=== PATIENT | female | born 1980 | race Caucasian/White ===

== ENCOUNTER 2019-08-22 15:10 | Emergency (ER) | payer BC, OTHER ==
[2019-08-22] MEDS ORDERED: Sodium Chloride 0.9% 10 ML Syringe FLUSH PRN (15:12)
--- NOTE | 2019-08-22 15:34 | CT ---
EXAMINATION: Head wo Cont SEX: Female AGE: 39 years CLINICAL HISTORY: 39-year-old female LIGHTHEADED AND DIZZY at work; dilated sluggish pupils and "not tracking appropriately". No known trauma. Scan technique: Volume acquisition of data emergency unenhanced CT scan of the head and brain obtained with the patient lying supine on the Siemens multislice scanner [place], [place]. All data archived in the PACS system for storage, reformatting axial/sagittal/coronal planes and study (bone/soft tissue windows). No comparison exams immediately available at this institution. INTERPRETATION: Negative exam. 1. Hyperostosis frontalis interna but otherwise uniformly thick bony calvarium. Symmetric clear paranasal and mastoid sinuses. No mucoperiosteal inflammation or pathologic air-fluid levels. Nasal septum midline. 2. No pathologic skeletal lesion, skull fracture, underlying brain contusion or abnormal extracerebral/intracranial epidural or subdural hematoma. 3. No supratentorial or posterior fossa mass lesion. 4. No hydrocephalus. 5. No ischemic infarcts or signs of encephalomalacia. 6. No evidence of acute intracerebral, intraventricular or subarachnoid bleed. 7. Cerebellum and brainstem unremarkable. Basal skull and TMJs normal.
--- NOTE | 2019-08-22 15:43 | EDM.PDOC ---
ED HPI GENERAL MEDICAL PROBLEM - General Chief Complaint: Neurological Problem Stated Complaint: EYE ISSUE Time Seen by Provider: 08/22/19 15:30 Source of Information: Reports: Patient, Provider (Dr. Martin), RN, RN Notes Reviewed History Limitations: Reports: No Limitations - History of Present Illness INITIAL COMMENTS - FREE TEXT/NARRATIVE: Patient presents to ER from [facility] with complaint of feeling funny. Patient states she was at work became dizzy and a little lightheaded, states she felt as though her right eye was shaking or twitching and that a cover was coming over her right eye. Patient states her pupils were dilated at that time and somewhat sluggish. Patient states her heart rate at that time was approximately 102, states she generally has a low heart rate. Patient states these began about 130. She had had lunch prior to that as well as exercised. Patient denies any health problems, denies taking any medications. Patient denies any alcohol or drug use. Patient denies history of headaches or migraine headaches. Denies weakness. NIH score equals 0. Onset: Today, Sudden - Related Data Allergies Allergy/AdvReac Type Severity Reaction Status Date / Time bee venom protein (honey bee) Allergy Hives Verified 08/22/19 15:22 shellfish derived Allergy Hives Verified 08/22/19 15:22 Home Meds: Home Meds . [No Known Home Meds] 08/22/19 [History] ED ROS GENERAL - Review of Systems Review Of Systems: Comprehensive ROS is negative, except as noted in HPI. ED EXAM, NEURO - Physical Exam Exam: See Below Exam Limited By: No Limitations General Appearance: Alert, WD/WN, No Apparent Distress, Anxious Eye Exam: Bilateral Eye: EOMI, Normal Inspection, PERRL (5, brisk) Ears: Normal External Exam, Hearing Grossly Normal Nose: Normal Inspection Throat/Mouth: Normal Inspection, Normal Voice, No Airway Compromise Head Exam: Atraumatic, Normocephalic Neck: Normal Inspection, Supple, Full Range of Motion, Tender Lateral (left) Respiratory/Chest: No Respiratory Distress, Lungs Clear, Normal Breath Sounds, No Accessory Muscle Use, Chest Non-Tender Cardiovascular: Normal Peripheral Pulses, Regular Rate, Rhythm, No Edema, No Gallop, No JVD, No Murmur, No Rub GI/Abdominal: Normal Bowel Sounds, Soft, Non-Tender, No Organomegaly, No Distention, No Abnormal Bruit, No Mass (Female) Exam: Deferred Rectal (Female) Exam: Deferred Neurological: Alert, Normal Mood/Affect, Normal Dorsiflexion, CN II-XII Intact, Normal Plantar Flexion, Normal Gait, Normal Reflexes, No Motor/Sensory Deficits, Oriented x 3 Back Exam: Normal Inspection, Full Range of Motion, NT Extremities: Normal Inspection, Normal Range of Motion, Non-Tender, No Pedal Edema, Normal Capillary Refill Psychiatric: Normal Mood, Anxious, Flat Affect Skin Exam: Warm, Dry, Intact, Normal Color, No Rash Course - Vital Signs Last Recorded V/S: Last Vital Signs Temp 97.2 F 08/22/19 15:23 Pulse 84 08/22/19 15:23 Resp 18 08/22/19 15:23 BP 132/87 08/22/19 15:23 Pulse Ox 100 08/22/19 15:23 - Orders/Labs/Meds Orders: Active Orders 24 hr Category Date Time Status EKG Documentation Completion [RC] STAT Care 08/22/19 15:12 Active Peripheral IV Care [RC] . DIRECTED Care 08/22/19 15:14 Active Sodium Chloride 0.9% [Normal Saline] 1,000 ml Med 08/22/19 15:45 Active IV ASDIRECTED Sodium Chloride 0.9% [Saline Flush] Med 08/22/19 15:12 Active 10 ml FLUSH ASDIRECTED PRN Peripheral IV Insertion Adult [OM.PC] Stat Oth 08/22/19 15:12 Ordered Medication Orders Sodium Chloride (Normal Saline) 1,000 mls @ 999 mls/hr IV ASDIRECTED TIANNA Last Infusion: 08/22/19 16:41 Dose: 999 mls/hr Documented by: Admin: 08/22/19 15:36 Dose: 999 mls/hr Documented by: ITALIA Sodium Chloride (Saline Flush) 10 ml FLUSH ASDIRECTED PRN PRN Reason: Keep Vein Open Last Admin: 08/22/19 15:36 Dose: 10 ml Documented by: ITALIA Labs: Laboratory Tests 08/22/19 08/22/19 08/22/19 Range/Units 15:17 15:33 15:33 WBC 9.1 (5.0-10.0) 10^3/uL RBC 4.61 (4.2-5.4) 10^6/uL Hgb 13.2 (12.0-16.0) g/dL Hct 41.1 (37.0-47.0) % MCV 89.2 (80-100) fL MCH 28.6 (27.0-34.0) pg MCHC 32.1 L (33.0-35.0) g/dL Plt Count 236 (150-450) 10^3/uL Neut % (Auto) 72.4 (42.2-75.2) % Lymph % (Auto) 17.7 L (20.5-50.1) % [place] % (Auto) 9.4 H (2-8) % Eos % (Auto) 0.4 L (1.0-3.0) % Baso % (Auto) 0.1 (0.0-1.0) % PT (9.0-12.0) SEC INR (0.9-1.2) Sodium 141 (136-145) mmol/L Potassium 3.8 (3.5-5.1) mmol/L Chloride 104 (98-107) mmol/L Carbon Dioxide 27 (21-32) mmol/L Anion Gap 13.8 H (7-13) mEq/L BUN 23 H (7-18) mg/dL Creatinine 1.10 H (0.55-1.02) mg/dL Est Cr Clr Drug Dosing 69.95 mL/min Estimated GFR (MDRD) 56 BUN/Creatinine Ratio 20.9 (No establ ref range) Glucose 95 (74-99) mg/dL POC Glucose 96 (70-105) mg/dl Calcium 8.9 (8.5-10.1) mg/dL Total Bilirubin 0.6 (0.2-1.0) mg/dL AST 21 (15-37) U/L ALT 32 (14-59) U/L Alkaline Phosphatase 76 (46-116) U/L Total Protein 7.2 (6.4-8.2) g/dL Albumin 4.2 (3.4-5.0) g/dL Globulin 3.0 Albumin/Globulin Ratio 1.4 Urine Color (YELLOW) Urine Appearance (CLEAR) Urine pH (5.0-9.0) Ur Specific [place] (1.005-1.030) Urine Protein (NEGATIVE) Urine Glucose (UA) (NEGATIVE) Urine Ketones (NEGATIVE) Urine Occult Blood (NEGATIVE) Urine Nitrite (NEGATIVE) Urine Bilirubin (NEGATIVE) Urine Urobilinogen (0.2-1.0) mg/dL Ur Leukocyte Esterase (NEGATIVE) Urine HCG, Qual Urine Opiates Screen (NEGATIVE) Ur Oxycodone Screen (NEGATIVE) Urine Methadone Screen (NEGATIVE) Ur Barbiturates Screen (NEGATIVE) U Tricyclic Antidepress (NEGATIVE) Ur Phencyclidine Scrn (NEGATIVE) Ur Amphetamine Screen (NEGATIVE) U Methamphetamines Scrn (NEGATIVE) Urine MDMA Screen (NEGATIVE) U Benzodiazepines Scrn (NEGATIVE) Urine Cocaine Screen (NEGATIVE) U Marijuana (THC) Screen (NEGATIVE) Ethyl Alcohol (0) mg/dL 08/22/19 08/22/19 08/22/19 Range/Units 15:33 15:33 16:32 WBC (5.0-10.0) 10^3/uL RBC (4.2-5.4) 10^6/uL Hgb (12.0-16.0) g/dL Hct (37.0-47.0) % MCV (80-100) fL MCH (27.0-34.0) pg MCHC (33.0-35.0) g/dL Plt Count (150-450) 10^3/uL Neut % (Auto) (42.2-75.2) % Lymph % (Auto) (20.5-50.1) % [place] % (Auto) (2-8) % Eos % (Auto) (1.0-3.0) % Baso % (Auto) (0.0-1.0) % PT 10.4 (9.0-12.0) SEC INR 1.1 (0.9-1.2) Sodium (136-145) mmol/L Potassium (3.5-5.1) mmol/L Chloride (98-107) mmol/L Carbon Dioxide (21-32) mmol/L Anion Gap (7-13) mEq/L BUN (7-18) mg/dL Creatinine (0.55-1.02) mg/dL Est Cr Clr Drug Dosing mL/min Estimated GFR (MDRD) BUN/Creatinine Ratio (No establ ref range) Glucose (74-99) mg/dL POC Glucose (70-105) mg/dl Calcium (8.5-10.1) mg/dL Total Bilirubin (0.2-1.0) mg/dL AST (15-37) U/L ALT (14-59) U/L Alkaline Phosphatase (46-116) U/L Total Protein (6.4-8.2) g/dL Albumin (3.4-5.0) g/dL Globulin Albumin/Globulin Ratio Urine Color Yellow (YELLOW) Urine Appearance Clear (CLEAR) Urine pH 6.0 (5.0-9.0) Ur Specific [place] 1.010 (1.005-1.030) Urine Protein Negative (NEGATIVE) Urine Glucose (UA) Negative (NEGATIVE) Urine Ketones Negative (NEGATIVE) Urine Occult Blood Negative (NEGATIVE) Urine Nitrite Negative (NEGATIVE) Urine Bilirubin Negative (NEGATIVE) Urine Urobilinogen 0.2 (0.2-1.0) mg/dL Ur Leukocyte Esterase Negative (NEGATIVE) Urine HCG, Qual Urine Opiates Screen (NEGATIVE) Ur Oxycodone Screen (NEGATIVE) Urine Methadone Screen (NEGATIVE) Ur Barbiturates Screen (NEGATIVE) U Tricyclic Antidepress (NEGATIVE) Ur Phencyclidine Scrn (NEGATIVE) Ur Amphetamine Screen (NEGATIVE) U Methamphetamines Scrn (NEGATIVE) Urine MDMA Screen (NEGATIVE) U Benzodiazepines Scrn (NEGATIVE) Urine Cocaine Screen (NEGATIVE) U Marijuana (THC) Screen (NEGATIVE) Ethyl Alcohol < 3 (0) mg/dL 08/22/19 08/22/19 Range/Units 16:32 16:32 WBC (5.0-10.0) 10^3/uL RBC (4.2-5.4) 10^6/uL Hgb (12.0-16.0) g/dL Hct (37.0-47.0) % MCV (80-100) fL MCH (27.0-34.0) pg MCHC (33.0-35.0) g/dL Plt Count (150-450) 10^3/uL Neut % (Auto) (42.2-75.2) % Lymph % (Auto) (20.5-50.1) % [place] % (Auto) (2-8) % Eos % (Auto) (1.0-3.0) % Baso % (Auto) (0.0-1.0) % PT (9.0-12.0) SEC INR (0.9-1.2) Sodium (136-145) mmol/L Potassium (3.5-5.1) mmol/L Chloride (98-107) mmol/L Carbon Dioxide (21-32) mmol/L Anion Gap (7-13) mEq/L BUN (7-18) mg/dL Creatinine (0.55-1.02) mg/dL Est Cr Clr Drug Dosing mL/min Estimated GFR (MDRD) BUN/Creatinine Ratio (No establ ref range) Glucose (74-99) mg/dL POC Glucose (70-105) mg/dl Calcium (8.5-10.1) mg/dL Total Bilirubin (0.2-1.0) mg/dL AST (15-37) U/L ALT (14-59) U/L Alkaline Phosphatase (46-116) U/L Total Protein (6.4-8.2) g/dL Albumin (3.4-5.0) g/dL Globulin Albumin/Globulin Ratio Urine Color (YELLOW) Urine Appearance (CLEAR) Urine pH (5.0-9.0) Ur Specific [place] (1.005-1.030) Urine Protein (NEGATIVE) Urine Glucose (UA) (NEGATIVE) Urine Ketones (NEGATIVE) Urine Occult Blood (NEGATIVE) Urine Nitrite (NEGATIVE) Urine Bilirubin (NEGATIVE) Urine Urobilinogen (0.2-1.0) mg/dL Ur Leukocyte Esterase (NEGATIVE) Urine HCG, Qual Negative Urine Opiates Screen Negative (NEGATIVE) Ur Oxycodone Screen Negative (NEGATIVE) Urine Methadone Screen Negative (NEGATIVE) Ur Barbiturates Screen Negative (NEGATIVE) U Tricyclic Antidepress Negative (NEGATIVE) Ur Phencyclidine Scrn Negative (NEGATIVE) Ur Amphetamine Screen Negative (NEGATIVE) U Methamphetamines Scrn Negative (NEGATIVE) Urine MDMA Screen Negative (NEGATIVE) U Benzodiazepines Scrn Negative (NEGATIVE) Urine Cocaine Screen Negative (NEGATIVE) U Marijuana (THC) Screen Negative (NEGATIVE) Ethyl Alcohol (0) mg/dL Meds: Medications Generic Name Dose Route Start Last Admin Trade Name Freq PRN Reason Stop Dose Admin Sodium Chloride 1,000 mls @ 999 mls/hr 08/22/19 15:45 08/22/19 16:41 Normal Saline IV Infused ASDIRECTED TIANNA Infusion Sodium Chloride 10 ml 08/22/19 15:12 08/22/19 15:36 Saline Flush FLUSH 10 ml ASDIRECTED PRN Administration Keep Vein Open Discontinued Medications Generic Name Dose Route Start Last Admin Trade Name Zehra PRN Reason Stop Dose Admin Diphenhydramine HCl 25 mg 08/22/19 15:56 08/22/19 16:25 Benadryl IVPUSH 08/22/19 15:57 25 mg ONETIME ONE Administration - Radiology Interpretation Free Text/Narrative:: Head CT wo contrast: Negative exam See rad report - Re-Assessments/Exams Free Text/Narrative Re-Assessment/Exam: 08/22/19 16:58 Patient states she is feeling somewhat better, but states she feels as though it is she was having an out of body experience. Patient has flat affect, and is in a dazed status. States she feels tired but would like to go home and rest. Patient informed of all labs and diagnostics done today in the ER, patient encouraged to go home and rest but to return to the ER with any worsening of symptoms or onset of new symptoms. Departure - Departure Time of Disposition: 16:59 Disposition: Home, Self-Care 01 Condition: Fair Clinical Impression: Light-headed feeling, Migraine aura without headache - Discharge Information *PRESCRIPTION DRUG MONITORING PROGRAM REVIEWED*: No *COPY OF PRESCRIPTION DRUG MONITORING REPORT IN PATIENT ELIDIA: No Instructions: Migraine Headache, [id number], Dizziness, [id number], Dehydration, Adult, [id number] Forms: ED Department Discharge Additional Instructions: Go home and rest Return to the ER with any worsening of symptoms or onset of new symptoms If you develop a headache may use Tylenol and/or ibuprofen as directed for pain Drink plenty of fluids Follow-up with your primary care provider next week Sepsis Event Note (ED) - Evaluation Sepsis Screening Result: No Definite Risk - Focused Exam Vital Signs: Vital Signs Temp Pulse Resp BP Pulse Ox 08/22/19 15:23 97.2 F 84 18 132/87 100 - My Orders Last 24 Hours: My Active Orders 08/22/19 15:12 EKG Documentation Completion [RC] STAT Sodium Chloride 0.9% [Saline Flush] 10 ml FLUSH ASDIRECTED PRN Peripheral IV Insertion Adult [OM.PC] Stat 08/22/19 15:14 Peripheral IV Care [RC] . DIRECTED 08/22/19 15:45 Sodium Chloride 0.9% [Normal Saline] 1,000 ml IV ASDIRECTED - Assessment/Plan Last 24 Hours: My Active Orders 08/22/19 15:12 EKG Documentation Completion [RC] STAT Sodium Chloride 0.9% [Saline Flush] 10 ml FLUSH ASDIRECTED PRN Peripheral IV Insertion Adult [OM.PC] Stat 08/22/19 15:14 Peripheral IV Care [RC] . DIRECTED 08/22/19 15:45 Sodium Chloride 0.9% [Normal Saline] 1,000 ml IV ASDIRECTED
[2019-08-22] MEDS ORDERED: Sodium Chloride 0.9% 1,000 ML IV SCH (15:45)
[2019-08-22] MEDS ORDERED: diphenhydrAMINE 50 MG/ML SDV IVPUSH ONE (15:56)
[2019-08-22 16:17] LABS: ANION GAP 13.8 mEq/L (7-13)
== END 2019-08-22 17:06 | disposition home or self-care (01) ==
LOC: DL.ED 15:10
DX: G43.109 Migraine with aura, not intractable, without status migrainosus (principal); R42 Dizziness and giddiness; Z91.013 Allergy to seafood; Z91.030 Bee allergy status
CPT/HCPCS: 36415; 70450; 80053; 80305; 80307; 81003; 81025; 82962; 85025; 85610; 93005; 96361; 96374; 99284; J1200; J7030; 99283

== ENCOUNTER 2020-01-20 13:01 | Emergency (ER) | payer OTHER ==
[2020-01-20] MEDS ORDERED: Ketorolac 30 MG/ML SDV IM ONE (13:33)
--- NOTE | 2020-01-20 13:53 | CR ---
PROCEDURE INFORMATION: Exam: XR Left Foot Complete Exam date and time: 01/20/2020 1:15 PM Age: 39 years old Clinical indication: Pain; Foot; Left; Additional info: Left foot injury, pain TECHNIQUE: Imaging protocol: XR Left foot. Views: 3 or more views. COMPARISON: No relevant prior studies available. FINDINGS: Bones/joints: Normal mineralization and alignment. No fracture, degenerative spur, osseous erosion or other deformity. Soft tissues: Normal. IMPRESSION: Normal.
--- NOTE | 2020-01-20 13:56 | EDM.PDOC ---
<ShirebaSatishian - Last Filed: 01/20/20 14:10> ED HPI GENERAL MEDICAL PROBLEM - General Chief Complaint: Lower Extremity Injury/Pain Stated Complaint: BROKEN LEFT FOOT Time Seen by Provider: 01/20/20 13:30 - Related Data Allergies Allergy/AdvReac Type Severity Reaction Status Date / Time bee venom protein (honey bee) Allergy Hives Verified 08/22/19 15:22 shellfish derived Allergy Hives Verified 08/22/19 15:22 Home Meds: Home Meds . [No Known Home Meds] 08/22/19 [History] Course - Re-Assessments/Exams Free Text/Narrative Re-Assessment/Exam: 01/20/20 14:10 I personally performed or re-performed the physical examination and medical decision making. I have verified all student documentation or findings, including history, physical exam and/or medical decision making. Departure - Departure Disposition: Home, Self-Care 01 Clinical Impression: Hematoma of left foot - Discharge Information Instructions: Periosteal Hematoma Forms: ED Department Discharge Additional Instructions: Continue to wear walking boot for 7-10 days. Follow-up in clinic if the pain has not resolved by that time. May use OTC ibuprofen as directed. Continue to use ice to the foot. Rest, Ice, Compression (as tolerated), Elevate. <Chela Mireles - Last Filed: 01/20/20 14:19> ED HPI GENERAL MEDICAL PROBLEM - General Source of Information: Reports: Patient, RN, RN Notes Reviewed History Limitations: Reports: No Limitations - History of Present Illness INITIAL COMMENTS - FREE TEXT/NARRATIVE: pt to ER with c/o left foot pain. states she initially injured her foot on Wednesday, went to chiropractor and was feeling better. states she was working out today and jumped on box, felt and heard left foot snap. reports pain initially a 9/10 which made her feel nauseous, dizzy, and lightheaded. rates pain 2/10 @ rest. reports feeling of numbness, tingling, and cool sensation up left calf into posterior knee fossa. denies additional injury. does have feeling to her foot. Onset: Today Left Feet Pain Score (Numeric/FACES): 5 Past Medical History - Past Health History Medical/Surgical History: Denies Medical/Surgical History [employer]GRAM[employer] History: Reports: - Past Surgical History Female Surgical History: Reports: Section Social & Family History - Tobacco Use Tobacco Use Status *Q: Never Tobacco User - Caffeine Use Caffeine Use: Reports: None - Recreational Drug Use Recreational Drug Use: No Review of Systems - Review of Systems Review Of Systems: Comprehensive ROS is negative, except as noted in HPI. ED EXAM, GENERAL - Physical Exam Exam: See Below Exam Limited By: No Limitations General Appearance: Alert, WD/WN, Mild Distress Eye Exam: Bilateral Eye: EOMI, Normal Inspection Nose: Normal Inspection Throat/Mouth: Normal Inspection Head: Atraumatic, Normocephalic Neck: Normal Inspection, Supple, Non-Tender, Full Range of Motion Respiratory/Chest: No Respiratory Distress, Lungs Clear, Normal Breath Sounds Cardiovascular: Normal Peripheral Pulses, Regular Rate, Rhythm, No Edema Peripheral Pulses: 3+: Posterior Tibial (L), Posterior Tibial (R), Dorsalis Pedis (L), Dorsalis Pedis (R) GI/Abdominal: Normal Bowel Sounds, Soft, Non-Tender, No Distention (Female) Exam: Deferred Rectal (Female) Exam: Deferred Back Exam: Normal Inspection, Full Range of Motion Extremities: Normal Inspection, Limited Range of Motion (left ankle), Other (tender to top dorsal lateral aspect of left foot with noted hematoma to same area. ) Neurological: Alert, Oriented, Normal Cognition, No Motor/Sensory Deficits Psychiatric: Anxious, Tearful Skin Exam: Warm, Dry, Intact, Cool Lymphatic: No Adenopathy Course - Vital Signs Last Recorded V/S: Last Vital Signs Temp 98.1 F 01/20/20 13:17 Pulse 70 01/20/20 13:17 Resp 18 01/20/20 13:17 BP 137/64 01/20/20 13:17 Pulse Ox 99 01/20/20 13:17 - Orders/Labs/Meds Orders: Active Orders 24 hr Category Date Time Status DME for Discharge [COMM] Stat Oth 01/20/20 13:34 Ordered Meds: Medications Discontinued Medications Generic Name Dose Route Start Last Admin Trade Name Freq PRN Reason Stop Dose Admin Ketorolac Tromethamine 60 mg 01/20/20 13:33 01/20/20 13:42 Toradol IM 01/20/20 13:34 60 mg ONETIME ONE Administration - Radiology Interpretation Free Text/Narrative:: PROCEDURE INFORMATION: Exam: XR Left Foot Complete Exam date and time: 01/20/2020 1:15 PM Age: 39 years old Clinical indication: Pain; Foot; Left; Additional info: Left foot injury, pain TECHNIQUE: Imaging protocol: XR Left foot. Views: 3 or more views. COMPARISON: No relevant prior studies available. FINDINGS: Bones/joints: Normal mineralization and alignment. No fracture, degenerative spur, osseous erosion or other deformity. Soft tissues: Normal. IMPRESSION: Normal. Thank you for allowing us to participate in the care of your patient. Dictated and Authenticated by: Ayden Olivas MD Departure - Departure Time of Disposition: 13:56 Condition: Good - Discharge Information *PRESCRIPTION DRUG MONITORING PROGRAM REVIEWED*: No *COPY OF PRESCRIPTION DRUG MONITORING REPORT IN PATIENT ELIDIA: No Sepsis Event Note (ED) - Evaluation Sepsis Screening Result: No Definite Risk - Focused Exam Vital Signs: Vital Signs Temp Pulse Resp BP Pulse Ox 01/20/20 13:17 98.1 F 70 18 137/64 99 - My Orders Last 24 Hours: My Active Orders 01/20/20 13:34 DME for Discharge [COMM] Stat - Assessment/Plan Last 24 Hours: My Active Orders 01/20/20 13:34 DME for Discharge [COMM] Stat
== END 2020-01-20 14:10 | disposition home or self-care (01) ==
LOC: DL.ED 13:01
DX: S90.32XA Contusion of left foot, initial encounter (principal); Z91.030 Bee allergy status; Z91.013 Allergy to seafood; X58.XXXA Exposure to other specified factors, initial encounter; Y93.39 Activity, other involving climbing, rappelling and jumping off
CPT/HCPCS: 73630; 96372; 99283; J1885

== ENCOUNTER 2021-10-16 19:29 | Emergency (ER) | payer OTHER ==
[2021-10-16] MEDS ORDERED: methylPREDNISolone Sodium Succinate 125 MG/2 ML SDV ONE (19:41)
[2021-10-16] MEDS ORDERED: diphenhydrAMINE 50 MG/ML SDV ONE (19:41)
[2021-10-16] MEDS: diphenhydrAMINE 50 MG/ML SDV IM ONE (19:44)
[2021-10-16] MEDS: methylPREDNISolone Sodium Succinate 125 MG/2 ML SDV IM ONE (19:44)
== END 2021-10-16 20:30 | disposition home or self-care (01) ==
LOC: DL.ED 19:29
DX: T63.441A Toxic effect of venom of bees, accidental (unintentional), initial encounter (principal); T63.451A Toxic effect of venom of hornets, accidental (unintentional), initial encounter; T63.461A Toxic effect of venom of wasps, accidental (unintentional), initial encounter; T78.40XA Allergy, unspecified, initial encounter; Z91.030 Bee allergy status; Z91.013 Allergy to seafood
CPT/HCPCS: 96372; 99282; J1200; J2930